=== PATIENT | female | born 1975 | race Caucasian/White ===

== ENCOUNTER 2019-08-13 20:11 | Emergency (ER) | payer MEDICAID ==
[~2019-08-13] VITALS: Ht 160 cm; Wt 59.0 kg
--- NOTE | 2019-08-13 21:30 | NUR ---
Pt provided urine sample, sent to lab.
--- NOTE | 2019-08-13 21:35 | NUR ---
Dr. Blanco at bedside for MSE.
[2019-08-13] MEDS ORDERED: IBUPROFEN 600 MG TABLET ONE (21:44)
[2019-08-13] MEDS ORDERED: IBUPROFEN 600 MG TABLET PO ONE (21:45)
--- NOTE | 2019-08-13 21:50 | NUR ---
Patient given written and verbal discharge instructions. Patient verbalizes understanding of instructions. Patient is ambulatory with steady gait. Refuses offer of [facility]pc placement. Patient given list of available shelters in surrounding area. Pt provided hospital sandwich and juice per pt request, and will arrange own transportation, refuses all other services at this time, VSS, no acute signs of distress, all belongings taken.
[2019-08-13 21:53] VITALS: BP 131/78
== END 2019-08-13 21:53 | disposition home or self-care (01) ==
LOC: ER 20:15
DX: M79.18 Myalgia, other site (principal)
CPT/HCPCS: A4663